=== PATIENT | female | born 1965 | race Caucasian/White ===

== ENCOUNTER 2018-06-05 00:55 | Outpatient (CLI) | payer OTHER, SELFPAY ==
--- NOTE | 2018-06-05 08:05 | DI.MAMMO_ITS ---
SYMPTOMS/DIAGNOSIS: SCREENING, Z12.31 MAMMOGRAM: Mammograms were interpreted according to the usual protocol including computer analysis with CAD system, tomosynthesis and C view imaging. The breast tissue is heterogeneously radiodense which lowers the sensitivity of the study. There is no dominant mass. There are no suspicious calcifications and there has been no significant interval change when compared with prior images. SUMMARY: No evidence of malignancy, Category I, annual screening mammography is recommended. Category C for breast density. SA ASSESSMENT OF FINDINGS: Negative. Category 1. Patient will receive a letter notifying them of these results. Bi-RADS category C. The breasts are heterogeneously dense, which may obscure small masses.
== END 2018-06-05 01:15 ==
DX: Z12.31 Encounter for screening mammogram for malignant neoplasm of breast (principal)
CPT/HCPCS: 77063; 77067

== ENCOUNTER 2024-01-28 17:49 | Outpatient (REF) | payer OTHER, SELFPAY ==
[2024-01-28 21:32] LABS: Abs Immature Grans 0.01 10^3/uL (0.0-0.06); Absolute Basophil Count 0.04 10^3/uL (0.0-0.2); Absolute Eosinophil Count 0.12 10^3/uL (0.0-0.7); Absolute Lymphocyte Count 1.33 10^3/uL (1.2-3.4); Absolute Neutrophil Count 3.14 10^3/uL (1.2-6.7); Basophils % 0.7 %; Eosinophils % 2.2 %; HCT 36.9 % (36.0-46.0); HGB 11.9 g/dL (11.2-15.7); Immature Grans % 0.2 %; Lymphocytes % 24.9 %; MCH 30.4 pg (27.0-33.0); MCHC 32.2 % (32.0-36.0); MCV 94 fL (80-95); MPV 10.5 fL (8.0-11.0); Monocytes % 13.1 %; Neutrophils % 58.9 %; Platelet Count 288 10^3/uL (130-400); RBC 3.91 10^6/uL (3.93-5.22); RDW 15.4 % (11.7-14.6); RDW-SD 53.4 fL; WBC 5.34 10^3/uL (4.4-10.8)
[2024-01-28 21:35] LABS: ESR 12 mm/hr (0-30)
[2024-01-28 21:40] LABS: C-Reactive Protein 0.81 mg/dL (<or=0.5)
== END 2024-01-28 17:50 | disposition home or self-care (01) ==
LOC: NCHCN 17:49
PROVIDERS: Visit Provider Nurse Practitioner Family
DX: R07.9 Chest pain, unspecified (principal)
CPT/HCPCS: 85652; 85025; 86140

== ENCOUNTER → 2024-02-04 00:45 | Outpatient (CLI) | payer OTHER, SELFPAY ==
--- NOTE | 2024-02-04 07:15 | DI.NM_ITS ---
APPROVED REPORT Exam: Exercise Treadmill Patient Location: Out-Patient Room/Bed: Stress Nurse: Lizandro Paul RN and Cheri Min RN Ordering Provider:FRIEDA MEYERS, Contact Number: [phone] BMI: 25.15 Baseline Rhythm: Sinus Bradycardia Indications: Acute Chest Pain Medical History Medical History: Chest Pain. Cardiac Medications: Cyanocobalamin; EpiPen; Vitamin D3. Allergies: Advil; Duloxetine; Midol; Penicillins. Cardiac Risk Factors: Family Hx. Previous Cardiac Procedures: None. Pretest Chest Pain Characteristics: Pt. complaining of 4/10 chest pain that radiates from her sternum towards her left arm. Exercise History: Indeterminate. Physical Disabilities: None. Lung Sounds: Clear bilaterally throughout, anterior and posterior. Heart Sounds: S1 and S2 auscultated. Stress Test Details Test: Exercise stress testing was performed using a Juan Manuel protocol. Nuclear Acquisition: Rest Tc-99m/Stress Tc-99m 1 day Rest Isotope: Tc-99m Sestamibi. Dose: 10.0 Date: 02/04/2024 Injection Time: 0900 Stress Isotope: Tc-99m Sestamibi. Dose: 30.0 Date: 02/04/2024 Injection Time: 1020 HR Resting HR Supine: 58 bpm Max Heart Rate (APMHR): 159.481163 bpm Resting HR Standin bpm Target HR (85% APMHR): 135.703395 bpm Max HR Achieved: 160 bpm % of APMHR: 100.63 Recovery HR: 86 bpm HR response to stress: Normal HR response to stress. BP Resting BP Supine: 152/78 mmHg Resting BP Standin/72 mmHg Max BP: 218/56 mmHg Recovery BP: 158/72 mmHg BP response to stress: Abnormal hypertensive response to stress. ECG Resting ECG: Sinus Bradycardia Ectopy: Rare PAC. Stress ECG: Sinus Tachycardia ST Change: No significant ST segment changes noted. Arrhythmia: Occasional PVC's; Couplets. Recovery ECG: Sinus Rhythm Recovery ST Change: No significant ST segment changes noted. Recovery Arrhythmia: Rare PAC; Occasional PVC's; Couplets. Clinical Reason for Termination: Target HR Achieved Stress Symptoms: None. Exercise duration: 07 min43 sec Highest Stage Reached: 3 Exercise capacity: 9.70 METs Angina Score: Non-Limiting Rate Pressure Product: 06000 Stress ECG Conclusion 1. Resting electrocardiogram was normal 2. Patient exercised on the Juan Manuel protocol and completed a workload of 9.7 METS 3. Mildly hypertensive blood pressure response to exercise. Normal heart rate response to exercise. The patient achieved 100% of maximal predicted heart rate for age 4. There was no electrocardiographic evidence of myocardial ischemia 5. See MPI report Stress Test Summary STAGE Time (mins) Speed (mph) Grade (%) HR BP SpO2 SYMPTOMS METS Supine 58 152/78 96 Pt. complaining of 4/10 chest pain that radiates from her sternum towa rds her left arm. Standing 69 160/72 1 3 1.7 10 118 176/52 97 4.5 2 6 2.5 12 145 190/58 7 3 9 3.4 14 160 10 1 min recovery 122 218/56 3 min recovery 94 190/62 98 6 min recovery 86 158/72 99 Pt. states that all chest pain is back to her baseline. Pt. complained of 4/10 chest pain that radiates from her sternum towards her left arm prior to ETT. P t. denied any change in the chest pain during exercise. Pt. stated that the chest pain had returned t o baseline prior to leaving the stress testing room. MPI Conclusion Myocardial perfusion is normal. There is no ischemia or evidence of prior infarction Ejection fraction is 61% with normal wall motion Radiologist Interpretation Radiologist agrees with [employer] Manager's Interpretation. Radiologist Interpretation by: Félix Wiley MD Interpretation Date/Time: 02/04/2024 18:38:25
== END ==
PROVIDERS: PCP Nurse Practitioner Family; Visit Provider Nurse Practitioner Family
DX: R07.9 Chest pain, unspecified (principal)
CPT/HCPCS: 78452; 93017

== ENCOUNTER 2024-03-02 03:45 | Outpatient (CLI) | payer OTHER, SELFPAY ==
[2024-03-02 12:15] LABS: HCT 38.1 % (36.0-46.0); MCH 30.3 pg (27.0-33.0); MCHC 31.5 % (32.0-36.0); MCV 96 fL (80-95); MPV 10.5 fL (8.0-11.0); Platelet Count 256 10^3/uL (130-400); RBC 3.96 10^6/uL (3.93-5.22); RDW-SD 50.3 fL
[2024-03-02 12:25] LABS: BUN 9 mg/dL (7-18); CREATININE 0.8 mg/dL (0.55-1.02); Calcium 9.1 mg/dL (8.5-10.1); Chloride 107 mmol/L (98-107); Estimated GFR 83.78 (mL/min/1.73m2); Glucose 92 mg/dL (74-106); Sodium 145 mmol/L (136-145)
[2024-03-02 17:20] LABS: CRP, High Sensitivity <0.34 mg/L (See Note)
== END 2024-03-02 03:46 | disposition home or self-care (01) ==
LOC: LOS 03:45
PROVIDERS: PCP Nurse Practitioner Family; Visit Provider Nurse Practitioner Family
DX: R07.9 Chest pain, unspecified (principal)
CPT/HCPCS: 36415; 80048; 85027; 86141

== ENCOUNTER 2024-04-16 02:03 | Outpatient (CLI) | payer OTHER, SELFPAY ==
--- NOTE | 2024-04-16 07:00 | DI.MAMMO_ITS ---
Exam(s) MAMMO SCREENING EXAM: MAMMO SCREENING CLINICAL HISTORY: screening Z12.39 TECHNIQUE: Mammograms were interpreted according to the usual protocol including computer analysis w [employer] CAD system, tomosynthesis and C-view imaging. COMPARISON: 2013 through 2017 FINDINGS: The breasts are composed of scattered fibroglandular densities, Breast Density category B. No suspicious masses or suspicious microcalcifications are seen in the right breast. There is a ques tion of an area of nodularity with overlying fibroglandular tissue in the lateral aspect of the left breast on the CC view. No suspicious calcifications in the left breast. No skin thickening or abnormal axillary lymph nodes are seen. There has been no significant change in the appearance of the right breast from prior exams. IMPRESSION: Left breast: BI-RADS Category 0 - Incomplete: Need additional imaging evaluation Right breast: Yearly screening mammography is recommended. Breast Density - Category B, scattered fibroglandular densities. A negative radiographic report should not delay biopsy if a dominant or clinically suspicious mass is present. Up to ten percent of cancers are not identified on mammography. A negative report may reinforce clinical impression. Adenosis and dense breasts may obscure an underlying neoplasm. False positive reports average 6 to 10%. Patient will receive a letter notifying them of these results.
== END 2024-04-16 02:23 ==
LOC: DI 02:03
PROVIDERS: PCP Nurse Practitioner Family; Visit Provider Nurse Practitioner Family
DX: Z12.31 Encounter for screening mammogram for malignant neoplasm of breast (principal)
CPT/HCPCS: 77063; 77067

== ENCOUNTER 2024-04-24 00:37 | Outpatient (CLI) | payer OTHER, SELFPAY ==
--- NOTE | 2024-04-24 10:00 | DI.MAMMO_ITS ---
Exam(s) MAMMO SCREEN CALL BACK UNI EXAM: MAMMO SCREEN CALL BACK UNI CLINICAL HISTORY: Area of nodularity with overlying fibroglandular tissue lateral lt breast. TECHNIQUE: Craniocaudal and mediolateral oblique Full Field Digital Mammography views of the left br east with Computer Aided Diagnosis. COMPARISON: Comparison is made with prior examinations. FINDINGS: Mammography/Tomosynthesis: Masses/Architectural Distortion: The area of concern does not persist on the additional views. No lee spicious mass or areas of architectural distortion are seen. Microcalcifictions: No suspicious pleomorphic-type are seen. Skin Thickening/Nipple Retraction: None. IMPRESSION: 1. No evidence of malignancy is noted. 2. Unless there is more urgent need, follow-up screening mammography is recommended, as per [employer] guidelines. 3. The findings were discussed with the patient on the date of the examination. BI-RADS Category 1 - Negative Breast Density - Category B - Scattered areas of fibroglandular density Breast density Category C or D implies that the patient has dense breast tissue. Dense breast tissue can make it harder to find cancer on a mammogram. Dense breast tissue is also associated with an incr eased risk of breast cancer. This information about the result of the mammogram report was provided to the patient to raise their awareness. Use this report when you speak with the patient about their risks for breast cancer, which includes their family history. At that time, you may recommend additional screening tests (Ultrasoun d or MRI) as these tests may add significant information. A negative radiographic report should not delay biopsy if a dominant or clinically suspicious mass is present. Up to ten percent of cancers are not identified on mammography. A negative report may reinforce clinical impression. Adenosis and dense breasts may obscure an underlying neoplasm. False positive reports average 6 to 10%. Patient will receive a letter notifying them of these results.
== END 2024-04-24 00:57 ==
LOC: DI 00:37
PROVIDERS: PCP Nurse Practitioner Family; Visit Provider Nurse Practitioner Family
DX: Z12.31 Encounter for screening mammogram for malignant neoplasm of breast (principal); R92.8 Other abnormal and inconclusive findings on diagnostic imaging of breast
CPT/HCPCS: 77063; 77067

== ENCOUNTER 2024-05-12 10:16 | Outpatient (REF) | payer OTHER, SELFPAY ==
--- NOTE | 2024-05-12 09:30 | PAPFT_PTH ---
PATIENT: Aleena Gallegos LOC: [facility] U#:[id number] AGE/SX: 59/F ROOM: RE05/12/[address]: April Bardales NP : 1965 BED: DIS: 05/12/2024 SPEC #: [id number] RECD: 05/12/24 12:57 STATUS: CHARY REYandy #: [id number] ROSALIE: 05/12/24 09:[address]: April Bardales [facility] Cytology RECD BY: Polly Romero Tissues: 1 - CX/ENDOCX FOR PAP SMEARS Procedures: PAP THIN PREP/[facility] Screening HPV DNA PROBE Comments: [id number] (HPV 16 & 18/45)
== END 2024-05-12 10:17 | disposition home or self-care (01) ==
LOC: LBN 10:16
PROVIDERS: PCP Nurse Practitioner Family; Visit Provider Nurse Practitioner Family
DX: Z11.51 Encounter for screening for human papillomavirus (HPV) (principal); Z01.419 Encounter for gynecological examination (general) (routine) without abnormal findings
CPT/HCPCS: 88142; 87624